=== PATIENT | male | born 1975 | race Caucasian/White ===

== ENCOUNTER 2018-07-14 19:49 | Emergency (ER) | payer MEDICAID ==
[2018-07-14] MEDS: predniSONE 20 MG TAB PO (23:21)
== END 2018-07-14 23:55 | disposition home or self-care (01) ==
LOC: FTE 19:49
DX: M1A.0720 Idiopathic chronic gout, left ankle and foot, without tophus (tophi) (principal)
CPT/HCPCS: 82962; 99283

== ENCOUNTER 2018-10-10 19:53 | Emergency (ER) | payer MEDICAID ==
[2018-10-10] MEDS: KETOROLAC 30 MG INJ IM (21:27)
[2018-10-10] MEDS: DEXAMETHASONE 10 MG/ML 1 ML INJ IM (21:31)
== END 2018-10-10 22:09 | disposition home or self-care (01) ==
LOC: FTE 19:53
DX: M54.42 Lumbago with sciatica, left side (principal)
CPT/HCPCS: 96372; 99284-25; J1100